=== PATIENT | male | born 1950 | race Caucasian/White ===

== ENCOUNTER → 2016-11-25 | Outpatient (REF) | payer MEDICARE, MEDICAID | LOC: M SMT 13:10 | PROVIDERS: ATTEND Nurse Practitioner Women's Health | DX: R31.0 Gross hematuria (principal) | CPT/HCPCS: 81001; 87086; 88108; G0463 ==

== ENCOUNTER → 2016-12-09 | Outpatient (CLI) | payer MEDICARE, MEDICAID ==
[~2016-12-09] MED LIST: ISOVUE-370 76% 100ML VIAL (Q9967) As Ordered ONE
--- NOTE | 2016-12-09 13:26 | REP ---
Clinical: Gross hematuria. Technique: Precontrast, contrast enhanced, and delayed images of the abdomen and pelvis using 100 ml Isovue 370 intravenous contrast material with coronal and sagittal re-formations. Findings: Bladder demonstrates a 3 cm enhancing rim calcified mass along the posterior right trigone concerning for transitional cell carcinoma. The remainder of the bladder is unremarkable and no obvious pelvic adenopathy is appreciated. Evaluation of the kidneys demonstrates 2 cm simple left upper pole parapelvic renal cyst and possible 1 mm nonobstructing lower pole calculus. The right kidney is normal. Kidneys demonstrate appropriate, symmetric enhancement and delayed images demonstrate appropriate contrast enhancement of the collecting system without hydroureteronephrosis. Liver, spleen, pancreas, and bilateral adrenal glands are normal. Cholelithiasis noted without CT evidence for acute cholecystitis. Evaluation of the enteric system demonstrates diffuse mural thickening to the colon from the cecum to the mid descending colon suggesting colitis and requiring further investigation. The remainder of the colon as well as a small bowel appears normal. Prostate gland is mildly enlarged. The sigmoid colon appears normal. No ascites. No significant intraperitoneal or retroperitoneal adenopathy identified. Musculoskeletal structures demonstrate age-related degenerative changes without focal osseous abnormality. No lung bases are clear. Impression: 1. A 3 cm enhancing rim calcified bladder mass at the right trigone concerning for transitional cell carcinoma. Urology consultation and cystoscopy is recommended. Kidneys demonstrate a 2 cm simple left renal cyst and 1 mm nonobstructing left renal calculus. 2. Mural thickening to the colon from the cecum to the mid descending colon concerning for acute inflammatory bowel disease versus acute infectious/inflammatory colitis and further investigation is recommended. Signed by Kirk Aleman MD 12/09/2016 01:17 P
== END ==
LOC: M RAD 12:30
PROVIDERS: ATTEND Nurse Practitioner Women's Health
DX: R31.0 Gross hematuria (principal); N28.89 Other specified disorders of kidney and ureter; N28.1 Cyst of kidney, acquired
CPT/HCPCS: 74178; Q9967

== ENCOUNTER → 2017-01-04 | Outpatient (REF) | payer MEDICARE, MEDICAID ==
[~2017-01-04] MED LIST changes: +ALPR2TAB3 PO; +B COTAB3 PO; +CO Q100C10 PO; +GLUC1CAP9 PO; +HYDR-3713 PO; -ISOVUE-370 76% 100ML VIAL (Q9967) As Ordered ONE; +MELA0.02 PO; +ODEF1TAB PO; +PROSCAP PO; +VITATAB21 PO; +VITATAB74 PO; +ZINC66TA PO; +ZYFLAMEND PO; +[UNRECOGNIZED DRUG - CODE] PO; +[UNRECOGNIZED DRUG - OTHER] PO
== END ==
LOC: M SMT 17:10
PROVIDERS: ATTEND Urology
DX: N40.1 Benign prostatic hyperplasia with lower urinary tract symptoms (principal)

== ENCOUNTER → 2017-01-07 | Outpatient (CLI) | payer MEDICARE, MEDICAID ==
--- NOTE | 2017-01-07 09:49 | REP ---
PA and lateral chest: Comparison is the chest CT dated of 05/14/2010. There are no comparison plain film study. There is a 7 mm faintly visible nodule like density inferiorly in the right lung, possibly a nipple artifact. Repeat study with markers performed with arms at sides and with arms over head is recommended to evaluate for nipple shadow artifact. Lung nicholas otherwise clear. Cardiac size is normal. The shant, mediastinum, and bony thorax are unremarkable. There are no acute infiltrates or effusions. Impression: Right lung nodule versus nipple shadow artifact. Repeat study with nipple markers as described, is recommended. Otherwise, negative PA chest. Signed by Yovany Griggs MD 01/07/2017 09:41 A
[2017-01-07 13:40] LABS: CALCIUM LEVEL 10.5 MG/DL (8.8-10.2); CREATININE FOR GFR 1.41 MG/DL (0.70-1.30); GLOMERULAR FILTRATION RATE 53.5 (>49); POTASSIUM SERUM 4.4 MEQ/L (3.5-5.1)
[2017-01-07 13:54] LABS: INR 0.94
[2017-01-07 14:00] LABS: MEAN CORPUSCULAR HEMOGLOBIN 31.5 pg (27.0-33.0); MEAN CORPUSCULAR HGB CONC 33.1 g/dl (32.0-36.5); MEAN CORPUSCULAR VOLUME 95.1 fl (80.0-96.0); RED CELL DISTRIBUTION WIDTH 12.5 % (11.5-14.5); WHITE BLOOD COUNT 11.4 K/mm3 (4.0-10.0)
== END ==
LOC: M SMT 07:57
PROVIDERS: ATTEND Urology
DX: R31.9 Hematuria, unspecified (principal); R91.8 Other nonspecific abnormal finding of lung field

== ENCOUNTER → 2017-01-20 | Day surgery (SDC) | payer MEDICARE, MEDICAID ==
[~2017-01-20] VITALS: Ht 167.6 cm; Wt 56.7 kg
[~2017-01-20] MED LIST changes: +CIPR500T3 PO; +CIPROFLOXACIN 500 MG TAB PO SCH; +LIDOCAINE 2% INJ 100 MG/5 ML SDV (FOR ANES.) As Ordered ONE; +LR 1,000 ML IV ONE; +LR 1,000 ML IV SCH; -MELA0.02 PO; +MELA3TAB49 PO; +MEPERIDINE INJ 25 MG/ML VIAL (J2175) IV PRN; +METOCLOPRAMIDE INJ 10MG/2ML VIAL (J2765) IV PRN; +MIDAZOLAM INJ 2 MG/2 ML VIAL (J2250) As Ordered ONE; +ONDANSETRON 4MG/2ML VIAL (J2405) As Ordered ONE; +ONDANSETRON 4MG/2ML VIAL (J2405) IV PRN; +PERCOCET 5MG/325MG TAB PO PRN; +PERCOCET PO; +PHENYLephrine HCL 500 MCG/5 ML (100MCG/ML) SYRINGE (J2370) As Ordered ONE; +PROPOFOL 200 MG/20 ML VIAL As Ordered ONE; +ROCURONIUM BROMIDE 50 MG/5 ML VIAL/SYRINGE As Ordered ONE; +SUGAMMADEX SODIUM 500 MG/5 ML VIAL (BRIDION) As Ordered ONE; +fentaNYL 100 MCG/2 ML INJECTION (J3010) As Ordered ONE
[2017-01-20] MEDS: fentaNYL 100 MCG/2 ML INJECTION (J3010) IV PRN ×3 (09:56→10:18)
[2017-01-20 12:45] VITALS: BP 129/74
--- NOTE | 2017-01-21 11:09 | RO ---
DATE OF PROCEDURE: 01/20/2017 PREPROCEDURE DIAGNOSIS: Bladder neoplasms POSTPROCEDURE DIAGNOSIS: Bladder neoplasms FINDINGS: Two bladder tumors, one on the right lateral wall and one on the left lateral wall, the right lateral wall was larger than the left and measuring 4 cm , the other one was 3 cm in diameter. PROCEDURE: Cystoscopy plus examination under anesthesia, transurethral resection of bladder tumor, bipolar TURBT. SURGEON: David Marquez MD POLICY ADVISER: None. ANESTHESIA: General. COMPLICATIONS: None. ESTIMATED BLOOD LOSS: N/A. HISTORY OF PRESENT ILLNESS: 66-year-old male patient who had a flexible cystoscopy in the clinic that found a bladder tumor. Both ureteral orifices were seen. For this reason, he was consented for a cystoscopy, plus examination under anesthesia, plus TURBT. DESCRIPTION OF PROCEDURE: In the patient under general anesthesia in supine, modified, low lithotomy position, after prepping and draping the area of concern , which included the entire genitalia and abdomen, I introduced a cystoscopy, #21 Libyan in diameter with a 30-degree lens under videoendoscopic guidance. The fossa navicularis, penile urethra, bulbar urethra, membranous urethra and prostatic urethra were totally normal. The bladder had two papillary tumors, largest 4 cm in diameter and the other one 3 cm in diameter on the lateral kelly of the bladder. Both ureteral orifices were seen excreting clear urine. The rest of the bladder was normal. We then extracted the cystoscope and introduced resectoscope. Under normal saline with bipolar resection, we resected first the right lateral wall tumor. We then collected the specimen with Ellik evacuator. We then resected the base of the bladder wall tumor on the right side and collected a specimen in a separate container also. We then fulgurated the base. We then proceeded to resect the left lateral wall tumor and collected a specimen with Ellik evacuator and fulgurated the base of the tumor also. Once hemostasis was totally complete, we took out the resectoscope and placed a #20-Libyan Reed catheter, three-way, and inflated the balloon to 20 mL. We then proceeded to perform a bimanual examination. The prostatic gland was about 40 to 60 mL, no lumps, no pain. The pedicles of the bladder were soft. There were no three-dimensional masses. We then proceeded to place a Reed to gravity. PLAN: The patient will go to recovery and then will be discharged home with the Reed to gravity. In about 5 days, he will be followed up at [facility] for a voiding trial. He will take antibiotics and pain medication. Specimens were sent for permanent pathology analysis. ANTHONY
== END | disposition home or self-care (01) ==
LOC: M SDC 05:48
PROVIDERS: ATTEND Urology
DX: C67.3 Malignant neoplasm of anterior wall of bladder (principal); B20 Human immunodeficiency virus [HIV] disease; R85.612 Low grade squamous intraepithelial lesion on cytologic smear of anus (LGSIL); K51.90 Ulcerative colitis, unspecified, without complications; M81.0 Age-related osteoporosis without current pathological fracture; E55.9 Vitamin D deficiency, unspecified; F41.1 Generalized anxiety disorder; E78.4 Other hyperlipidemia; T88.59XD Other complications of anesthesia, subsequent encounter; M12.9 Arthropathy, unspecified; F32.9 Major depressive disorder, single episode, unspecified; F43.10 Post-traumatic stress disorder, unspecified; Z91.040 Latex allergy status; Z79.899 Other long term (current) drug therapy
CPT/HCPCS: 36415; 52240; 86850; 86900; 86901; 88307; J0690; J2250; J2370; J2405; J3010

== ENCOUNTER → 2017-02-05 | Outpatient (REF) | payer MEDICARE, MEDICAID ==
[~2017-02-05] MED LIST changes: -CIPROFLOXACIN 500 MG TAB PO SCH; -LIDOCAINE 2% INJ 100 MG/5 ML SDV (FOR ANES.) As Ordered ONE; -LR 1,000 ML IV ONE; -LR 1,000 ML IV SCH; -MEPERIDINE INJ 25 MG/ML VIAL (J2175) IV PRN; -METOCLOPRAMIDE INJ 10MG/2ML VIAL (J2765) IV PRN; -MIDAZOLAM INJ 2 MG/2 ML VIAL (J2250) As Ordered ONE; -ONDANSETRON 4MG/2ML VIAL (J2405) As Ordered ONE; -ONDANSETRON 4MG/2ML VIAL (J2405) IV PRN; -PERCOCET 5MG/325MG TAB PO PRN; -PHENYLephrine HCL 500 MCG/5 ML (100MCG/ML) SYRINGE (J2370) As Ordered ONE; -PROPOFOL 200 MG/20 ML VIAL As Ordered ONE; -ROCURONIUM BROMIDE 50 MG/5 ML VIAL/SYRINGE As Ordered ONE; -SUGAMMADEX SODIUM 500 MG/5 ML VIAL (BRIDION) As Ordered ONE; -fentaNYL 100 MCG/2 ML INJECTION (J3010) As Ordered ONE
== END ==
LOC: M SMT 12:48
PROVIDERS: ATTEND Urology
DX: C67.9 Malignant neoplasm of bladder, unspecified (principal); Z79.899 Other long term (current) drug therapy
CPT/HCPCS: 81001; 87086; G0463

== ENCOUNTER → 2017-02-25 | Outpatient (CLI) | payer MEDICARE, MEDICAID ==
[2017-02-25 13:56] LABS: BASO % 0.5 % (0.0-1.0); EOS # 0.1 K/mm3 (0.0-0.50); EOS % 1.2 % (0.0-3.0); LARGE UNSTAINED CELL # 0.1 K/mm3 (0.0-0.4); LARGE UNSTAINED CELL % 1.8 % (0.0-4.0); LYMPH # 2.4 K/mm3 (1.5-4.5); LYMPH % 29.5 % (24.0-44.0); MEAN CORPUSCULAR HEMOGLOBIN 30.8 pg (27.0-33.0); MEAN CORPUSCULAR HGB CONC 33.1 g/dl (32.0-36.5); MEAN CORPUSCULAR VOLUME 93.2 fl (80.0-96.0); MONO # 0.4 K/mm3 (0.0-0.8); MONO % 5.1 % (0.0-5.0); NEUTROPHILS # 4.7 K/mm3 (1.8-7.7); NEUTROPHILS % 61.9 % (36.0-66.0); PLATELET COUNT, AUTOMATED 352 k/mm3 (150-450); RED CELL DISTRIBUTION WIDTH 13.2 % (11.5-14.5); WHITE BLOOD COUNT 7.6 K/mm3 (4.0-10.0)
[2017-02-25 14:05] LABS: ALBUMIN 4.4 GM/DL (3.2-5.2); ALBUMIN/GLOBULIN RATIO 1.26 (1.00-1.93); BILIRUBIN,TOTAL 0.4 MG/DL (0.2-1.0); CALCIUM LEVEL 10.5 MG/DL (8.8-10.2); CREATININE FOR GFR 1.33 MG/DL (0.70-1.30); GLOMERULAR FILTRATION RATE 57.1 (>49); POTASSIUM SERUM 4.3 MEQ/L (3.5-5.1); TOTAL PROTEIN 7.9 GM/DL (6.4-8.2)
[2017-02-27 00:07] LABS: %CD3+CD4+CD8+ 1.1 % (Not Estab.); %CD3+CD4+CD8- 35.8 % (Not Estab.); %CD3+CD4-CD8- 0.4 % (Not Estab.); ABS CD3+CD4+CD8+ 25 /uL (Not Estab.); ABS CD3+CD4+CD8- 823 /uL (Not Estab.); ABS CD3+CD4-CD8+ 529 /uL (Not Estab.); ABS CD3+CD4-CD8- 9 /uL (Not Estab.); CD4/CD8 NYSDOH RATIO 1.56 (Not Estab.); Eosinophils 1 % (.); HCT 43.3 % (37.5-51.0); HGB 14.7 g/dL (12.6-17.7); Monocytes 8 % (.); Neutrophils 59 % (.); WBC 7.4 x10E3/uL (3.4-10.8)
== END ==
LOC: M SMT 08:12
PROVIDERS: ATTEND Internal Medicine Infectious Disease
DX: B20 Human immunodeficiency virus [HIV] disease (principal); C67.9 Malignant neoplasm of bladder, unspecified; Z79.899 Other long term (current) drug therapy

== ENCOUNTER → 2017-03-31 | Outpatient (REF) | payer MEDICARE, MEDICAID | LOC: M SMT 13:20 | PROVIDERS: ATTEND Nurse Practitioner Women's Health | DX: C67.9 Malignant neoplasm of bladder, unspecified (principal); Z79.899 Other long term (current) drug therapy ==

== ENCOUNTER → 2017-04-13 | Outpatient (REF) | payer MEDICARE, MEDICAID ==
[2017-04-13 12:29] LABS: ANION GAP 6 MEQ/L (8-16); BLOOD UREA NITROGEN 17 MG/DL (7-18); CALCIUM LEVEL 10.9 MG/DL (8.8-10.2); CARBON DIOXIDE LEVEL 28 MEQ/L (21-32); CHLORIDE LEVEL 106 MEQ/L (98-107); CREATININE FOR GFR 1.12 MG/DL (0.70-1.30); GLOMERULAR FILTRATION RATE > 60.0 (>49); GLUCOSE, FASTING 104 MG/DL (80-110); SODIUM LEVEL 140 MEQ/L (136-145)
[2017-05-11 08:07] LABS: Eosinophils 1 % (.); HCT 43.1 % (37.5-51.0); HGB 14.6 g/dL (12.6-17.7); Monocytes 9 % (.); Neutrophils 59 % (.); WBC 7.1 x10E3/uL (3.4-10.8)
== END ==
LOC: M SFHCPLAZ 09:16
PROVIDERS: ATTEND Internal Medicine Infectious Disease
DX: B20 Human immunodeficiency virus [HIV] disease (principal); C67.9 Malignant neoplasm of bladder, unspecified; M81.0 Age-related osteoporosis without current pathological fracture; E55.9 Vitamin D deficiency, unspecified; K51.90 Ulcerative colitis, unspecified, without complications; F41.1 Generalized anxiety disorder; N40.1 Benign prostatic hyperplasia with lower urinary tract symptoms; Z23 Encounter for immunization; Z79.1 Long term (current) use of non-steroidal anti-inflammatories (NSAID); Z79.899 Other long term (current) drug therapy
CPT/HCPCS: 36415; 80048; 81001; 86360; 87086; 87536; 90662; G0008; G0463

== ENCOUNTER → 2017-04-23 | Outpatient (CLI) | payer MEDICARE, MEDICAID ==
[~2017-04-23] MED LIST changes: +GASTROGRAFIN SOLUTION 30ML (Q9963) As Ordered ONE; +ISOVUE-370 76% 100ML VIAL (Q9967) As Ordered ONE
--- NOTE | 2017-04-24 11:01 | REP ---
CT CHEST WITH CONTRAST: HISTORY: Hypercalcemia. CONTRAST: Isovue 370, 100 mL. COMPARISON: 07/04/2010. Scarring is present in the lung apices. Scattered bullae are present in the lungs. A minimal increase in interstitial markings is present. There is no pleural effusion. There is no mediastinal mass. The heart is normal in size. Minimal degenerative change is present in the thoracic spine. IMPRESSION: Findings consistent with COPD Signed by Lio Martinez MD 04/24/2017 11:02 A
--- NOTE | 2017-04-24 18:24 | REP ---
A CT of the abdomen and pelvis without and with IV contrast, multiphase scanning. Bowel contrast is utilized on all phases of the study. Comparison is 12/09/2016. The bladder mass noted along the posterior wall of the bladder to the right of midline on the previous study is no longer present. The small polyp along the left lateral bladder wall previously is no longer present. There is no hydronephrosis. There is a left renal upper pole 1.9 cm cyst. This is unchanged. No renal calculi are identified. No perinephric stranding. No renal masses are identified. The visualized lung nicholas are unremarkable. The hepatic parenchyma is homogeneous and unremarkable. There are multiple small gallbladder calculi in the, unchanged. There is no biliary duct dilatation. The pancreas and spleen are unremarkable and unchanged. The adrenals are unremarkable. Abdominal aorta, bowel and mesentery are unremarkable. There is no retroperitoneal or mesenteric adenopathy. Pelvis: The previously identified bladder masses are no longer present. There is no ascites or adenopathy. The pelvic bowel loops are unremarkable. There are no lytic, blastic or destructive skeletal changes. There is degenerative disc disease at L5 S1. Impression: The previously identified bladder masses are no longer present. Cholelithiasis. Left renal cyst. There is no retroperitoneal or mesenteric adenopathy. No ascites. No lytic, blastic or destructive skeletal changes. Signed by Yovany Griggs MD 04/24/2017 06:15 P
== END ==
LOC: M RAD 15:14
PROVIDERS: ATTEND Internal Medicine Infectious Disease
DX: C67.3 Malignant neoplasm of anterior wall of bladder (principal); E83.52 Hypercalcemia; J44.9 Chronic obstructive pulmonary disease, unspecified; K80.20 Calculus of gallbladder without cholecystitis without obstruction; N28.1 Cyst of kidney, acquired
CPT/HCPCS: 71260; 74178; Q9963; Q9967

== ENCOUNTER 2017-07-30 08:01 | Day surgery (SDC) | payer MEDICARE, MEDICAID ==
[~2017-07-30 08:01] MED LIST changes: -ALPR2TAB3 PO; -B COTAB3 PO; -CIPR500T3 PO; -CO Q100C10 PO; -GASTROGRAFIN SOLUTION 30ML (Q9963) As Ordered ONE; -GLUC1CAP9 PO; -HYDR-3713 PO; -ISOVUE-370 76% 100ML VIAL (Q9967) As Ordered ONE; -MELA3TAB49 PO; -ODEF1TAB PO; -PERCOCET PO; +PROPOFOL 200 MG/20 ML VIAL As Ordered; -PROSCAP PO; -VITATAB21 PO; -VITATAB74 PO; -ZINC66TA PO; -ZYFLAMEND PO; -[UNRECOGNIZED DRUG - CODE] PO; -[UNRECOGNIZED DRUG - OTHER] PO
[2017-07-30] MEDS ORDERED: NS 1,000 ML IV (09:30)
== END 2017-07-30 10:35 | disposition home or self-care (01) ==
LOC: M OPP 08:01
DX: K51.00 Ulcerative (chronic) pancolitis without complications (principal); K51.50 Left sided colitis without complications; K51.40 Inflammatory polyps of colon without complications; K62.89 Other specified diseases of anus and rectum; E78.5 Hyperlipidemia, unspecified; M19.90 Unspecified osteoarthritis, unspecified site; F41.9 Anxiety disorder, unspecified; F32.9 Major depressive disorder, single episode, unspecified; R51 Headache; F43.10 Post-traumatic stress disorder, unspecified; C67.9 Malignant neoplasm of bladder, unspecified; B20 Human immunodeficiency virus [HIV] disease; Z79.899 Other long term (current) drug therapy; Z88.8 Allergy status to other drugs, medicaments and biological substances; Z91.040 Latex allergy status; Z91.041 Radiographic dye allergy status
CPT/HCPCS: 45380

== ENCOUNTER → 2017-08-24 | Outpatient (REF) | payer MEDICARE, MEDICAID ==
[2017-08-24 14:24] LABS: ALBUMIN 4.7 GM/DL (3.2-5.2); ALBUMIN/GLOBULIN RATIO 1.31 (1.00-1.93); ALKALINE PHOSPHATASE 97 U/L (45-117); ALT/SGPT 43 U/L (12-78); ANION GAP 8 MEQ/L (8-16); AST/SGOT 33 U/L (7-37); BILIRUBIN,TOTAL 0.4 MG/DL (0.2-1.0); BLOOD UREA NITROGEN 24 MG/DL (7-18); CALCIUM LEVEL 10.7 MG/DL (8.8-10.2); CARBON DIOXIDE LEVEL 29 MEQ/L (21-32); CHLORIDE LEVEL 103 MEQ/L (98-107); CHOLESTEROL LEVEL 204 MG/DL (<200); CHOLESTEROL RISK RATIO 3.923 (<5); CREATININE FOR GFR 1.34 MG/DL (0.70-1.30); GLOMERULAR FILTRATION RATE 56.6 (>49); GLUCOSE, FASTING 81 MG/DL (70-100); HDL CHOLESTEROL 52 MG/DL (>40); LDL CHOLESTEROL 111.6 MG/DL (<100); NON-HDL-C 152 MG/DL; POTASSIUM SERUM 3.9 MEQ/L (3.5-5.1); PSA SCREENING 0.51 NG/ML (< 4.0); SODIUM LEVEL 140 MEQ/L (136-145); TOTAL PROTEIN 8.3 GM/DL (6.4-8.2); TRIGLYCERIDES LEVEL 202 MG/DL (<150)
[2017-08-24 20:10] LABS: APPEARANCE, URINE HAZY (CLEAR); BACTERIA, URINE AUTO NEGATIVE (NEGATIVE); BILIRUBIN, URINE AUTO NEGATIVE (NEGATIVE); BLOOD, URINE BLOOD NEGATIVE (NEGATIVE); COLOR, URINE YELLOW (YELLOW); GLUCOSE, URINE (UA) AUTO NEGATIVE (NEGATIVE); KETONE, URINE AUTO NEGATIVE (NEGATIVE); LEUKOCYTE ESTERASE, URINE AUTO NEGATIVE (NEGATIVE); NITRITE, URINE AUTO NEGATIVE (NEGATIVE); PROTEIN, URINE AUTO NEGATIVE (NEGATIVE); RBC, URINE AUTO 0 /HPF (0-3); SPECIFIC GRAVITY URINE AUTO 1.013 (1.002-1.035); SQUAMOUS EPITHELIAL CELL UR AU 0 /HPF (0-6); UROBILINOGEN, URINE AUTO 0.2 mg/dL (0.0-2.0); WBC, URINE AUTO 0 /HPF (0-3)
[2017-08-27 00:06] LABS: QUANTIFERON GOLD TB Negative (Negative); TB Test (QFT) Antigen 0.11 IU/mL (.); TB Test (QFT) Antigen Minus Ni 0.01 IU/mL (.); TB Test (QFT) Mitogen 6.59 IU/mL (.)
[2017-08-27 14:13] LABS: % CD8 Pos Lymph 23.4 % (12.0-35.5); %CD4 Pos Lymphs 50.6 % (30.8-58.5); ABS Eosinophils 0.1 x10E3/uL (0.0-0.4); ABS Lymphs 2.9 x10E3/uL (0.7-3.1); ABS Monocytes 0.7 x10E3/uL (0.1-0.9); ABS Neutophils 4.6 x10E3/uL (1.4-7.0); Abs CD4 Helper 1467 /uL (359-1519); Abs CD8 Suppres 679 /uL (109-897); CD4/CD8 Ratio 2.16 (0.92-3.72); Eosinophils 1 % (Not Estab.); HCT 43.5 % (37.5-51.0); HGB 15.1 g/dL (13.0-17.7); HIV-1 RNA PCR QUANT 2 LC550285 390 copies/mL (.); HIV-1 RNA PCR QUANT 3 LC550285 2.591 (.); Immature Grans 0 % (Not Estab.); Lymphocytes 35 % (Not Estab.); MCH 32.8 pg (26.6-33.0); MCHC 34.7 g/dL (31.5-35.7); MCV 94 fL (79-97); Monocytes 9 % (Not Estab.); Neutrophils 54 % (Not Estab.); Platelets 357 x10E3/uL (150-379); RBC 4.61 x10E6/uL (4.14-5.80); RDW 13.2 % (12.3-15.4); WBC 8.4 x10E3/uL (3.4-10.8)
== END ==
LOC: M SFHCPLAZ 11:03
DX: C67.3 Malignant neoplasm of anterior wall of bladder (principal); B20 Human immunodeficiency virus [HIV] disease; Z13.220 Encounter for screening for lipoid disorders; Z79.899 Other long term (current) drug therapy; Z23 Encounter for immunization
CPT/HCPCS: 80053; G0008

== ENCOUNTER → 2017-08-30 | Outpatient (REF) | payer MEDICARE, MEDICAID ==
[2017-08-30 13:59] LABS: APPEARANCE, URINE CLEAR (CLEAR); BACTERIA, URINE AUTO NEGATIVE (NEGATIVE); BILIRUBIN, URINE AUTO NEGATIVE (NEGATIVE); BLOOD, URINE BLOOD NEGATIVE (NEGATIVE); COLOR, URINE YELLOW (YELLOW); GLUCOSE, URINE (UA) AUTO NEGATIVE (NEGATIVE); KETONE, URINE AUTO NEGATIVE (NEGATIVE); LEUKOCYTE ESTERASE, URINE AUTO NEGATIVE (NEGATIVE); NITRITE, URINE AUTO NEGATIVE (NEGATIVE); PROTEIN, URINE AUTO NEGATIVE (NEGATIVE); RBC, URINE AUTO 0 /HPF (0-3); SPECIFIC GRAVITY URINE AUTO 1.008 (1.002-1.035); SQUAMOUS EPITHELIAL CELL UR AU 0 /HPF (0-6); UROBILINOGEN, URINE AUTO 0.2 mg/dL (0.0-2.0); WBC, URINE AUTO 1 /HPF (0-3)
== END ==
LOC: M LAB REF 13:03
DX: Z85.51 Personal history of malignant neoplasm of bladder (principal); N50.819 Testicular pain, unspecified; B20 Human immunodeficiency virus [HIV] disease; Z79.899 Other long term (current) drug therapy
CPT/HCPCS: 81001

== ENCOUNTER → 2017-09-06 | Outpatient (CLI) | payer MEDICARE, MEDICAID | LOC: M SMT 09:07 | DX: N50.819 Testicular pain, unspecified (principal) | CPT/HCPCS: 76870 ==

== ENCOUNTER → 2017-12-06 | Outpatient (REF) | payer MEDICARE, MEDICAID | LOC: M SMT 17:06 | DX: Z08 Encounter for follow-up examination after completed treatment for malignant neoplasm (principal); Z85.51 Personal history of malignant neoplasm of bladder | CPT/HCPCS: 88108 ==

== ENCOUNTER → 2017-12-21 | Outpatient (REF) | payer MEDICARE, MEDICAID ==
[2017-12-21 12:48] LABS: FOLATE > 24.0 NG/ML; TOTAL 25(OH) VITAMIN D 31.2 NG/ML (30.0-100.0)
[2017-12-21 12:53] LABS: ALBUMIN 4.3 GM/DL (3.2-5.2); ALBUMIN/GLOBULIN RATIO 1.19 (1.00-1.93); ALKALINE PHOSPHATASE 97 U/L (45-117); ALT/SGPT 33 U/L (12-78); ANION GAP 8 MEQ/L (8-16); AST/SGOT 26 U/L (7-37); BILIRUBIN,TOTAL 0.2 MG/DL (0.2-1.0); BLOOD UREA NITROGEN 16 MG/DL (7-18); CALCIUM LEVEL 10.2 MG/DL (8.8-10.2); CARBON DIOXIDE LEVEL 25 MEQ/L (21-32); CHLORIDE LEVEL 108 MEQ/L (98-107); CREATININE FOR GFR 1.18 MG/DL (0.70-1.30); GLOMERULAR FILTRATION RATE > 60.0 (>49); GLUCOSE, FASTING 108 MG/DL (70-100); POTASSIUM SERUM 4.3 MEQ/L (3.5-5.1); SODIUM LEVEL 141 MEQ/L (136-145); THYROID STIMULATING HORMONE 0.628 uIU/ML (0.358-3.740); TOTAL PROTEIN 7.9 GM/DL (6.4-8.2)
[2017-12-21 13:49] LABS: VITAMIN B12 LEVEL 739 PG/ML
[2017-12-22 17:41] LABS: % CD8 Pos Lymph 24.6 % (12.0-35.5); %CD4 Pos Lymphs 53.7 % (30.8-58.5); ABS Eosinophils 0.1 x10E3/uL (0.0-0.4); ABS Lymphs 2.2 x10E3/uL (0.7-3.1); ABS Monocytes 0.8 x10E3/uL (0.1-0.9); ABS Neutophils 7.4 x10E3/uL (1.4-7.0); Abs CD4 Helper 1181 /uL (359-1519); Abs CD8 Suppres 541 /uL (109-897); CD4/CD8 Ratio 2.18 (0.92-3.72); Eosinophils 1 % (Not Estab.); HCT 42.1 % (37.5-51.0); HGB 14.1 g/dL (13.0-17.7); Immature Grans 0 % (Not Estab.); Lymphocytes 21 % (Not Estab.); MCH 31.5 pg (26.6-33.0); MCHC 33.5 g/dL (31.5-35.7); MCV 94 fL (79-97); Monocytes 8 % (Not Estab.); Neutrophils 70 % (Not Estab.); Platelets 428 x10E3/uL (150-379); RBC 4.48 x10E6/uL (4.14-5.80); RDW 13.5 % (12.3-15.4); WBC 10.4 x10E3/uL (3.4-10.8)
[2017-12-23 14:16] LABS: HIV-1 RNA PCR QUANT 2 LC550285 <20 copies/mL (.)
== END ==
LOC: M SFHCPLAZ 08:29
DX: B20 Human immunodeficiency virus [HIV] disease (principal); E55.9 Vitamin D deficiency, unspecified; K51.90 Ulcerative colitis, unspecified, without complications; C67.9 Malignant neoplasm of bladder, unspecified; F41.1 Generalized anxiety disorder; M81.0 Age-related osteoporosis without current pathological fracture
CPT/HCPCS: 82746

== ENCOUNTER → 2018-03-14 | Outpatient (REF) | payer MEDICARE, MEDICAID | LOC: M SMT 13:15 | DX: B20 Human immunodeficiency virus [HIV] disease (principal) | CPT/HCPCS: 88108 ==

== ENCOUNTER → 2018-07-28 | Outpatient (REF) | payer MEDICARE, MEDICAID ==
[~2018-07-28] MED LIST changes: +ALPR2TAB3 PO; +ARGI500P PO; +AUGM875T28 PO; +B COTAB3 PO; +CIPR500T3 PO; +CO Q100C10 PO; +GLUC1500 PO; +GLUC1CAP9 PO; +HYDR-3713 PO; +MELA3TAB49 PO; +MULT1TAB10 PO; +ODEF1TAB PO; +PERCOCET PO; -PROPOFOL 200 MG/20 ML VIAL As Ordered; +PROSCAP PO; +SMZ-TMP; +VITATAB21 PO; +VITATAB74 PO; +ZINC66TA PO; +ZYFLAMEND PO; +[UNRECOGNIZED DRUG - CODE] PO; +[UNRECOGNIZED DRUG - CODE] PO; +[UNRECOGNIZED DRUG - OTHER] PO; +[UNRECOGNIZED DRUG - OTHER] PO
[2018-07-28 14:10] LABS: APPEARANCE, URINE HAZY (CLEAR); BACTERIA, URINE AUTO NEGATIVE (NEGATIVE); BILIRUBIN, URINE AUTO NEGATIVE (NEGATIVE); BLOOD, URINE BLOOD NEGATIVE (NEGATIVE); COLOR, URINE YELLOW (YELLOW); GLUCOSE, URINE (UA) AUTO NEGATIVE (NEGATIVE); KETONE, URINE AUTO NEGATIVE (NEGATIVE); LEUKOCYTE ESTERASE, URINE AUTO NEGATIVE (NEGATIVE); NITRITE, URINE AUTO NEGATIVE (NEGATIVE); PROTEIN, URINE AUTO NEGATIVE (NEGATIVE); RBC, URINE AUTO 4 /HPF (0-3); SPECIFIC GRAVITY URINE AUTO 1.011 (1.002-1.035); SQUAMOUS EPITHELIAL CELL UR AU 0 /HPF (0-6); UROBILINOGEN, URINE AUTO 0.2 mg/dL (0.0-2.0); WBC, URINE AUTO 1 /HPF (0-3)
[2018-07-28 14:34] LABS: ALBUMIN 4.2 GM/DL (3.2-5.2); ALT/SGPT 45 U/L (12-78); BILIRUBIN,TOTAL 0.4 MG/DL (0.2-1.0); BLOOD UREA NITROGEN 22 MG/DL (7-18); CALCIUM LEVEL 10.1 MG/DL (8.8-10.2); CARBON DIOXIDE LEVEL 28 MEQ/L (21-32); CHLORIDE LEVEL 106 MEQ/L (98-107); CREATININE FOR GFR 1.24 MG/DL (0.70-1.30); GLOMERULAR FILTRATION RATE > 60.0 (>49); GLUCOSE, FASTING 96 MG/DL (70-100); POTASSIUM SERUM 4.2 MEQ/L (3.5-5.1); SODIUM LEVEL 139 MEQ/L (136-145); TOTAL PROTEIN 8.2 GM/DL (6.4-8.2)
[2018-07-28 14:42] LABS: TOTAL 25(OH) VITAMIN D 34.1 NG/ML (30.0-100.0)
[2018-08-02 00:07] LABS: % CD8 Pos Lymph 24.4 % (12.0-35.5); %CD4 Pos Lymphs 48.5 % (30.8-58.5); ABS Eosinophils 0.1 x10E3/uL (0.0-0.4); ABS Monocytes 0.4 x10E3/uL (0.1-0.9); ABS Neutophils 4.8 x10E3/uL (1.4-7.0); Abs CD4 Helper 970 /uL (359-1519); Abs CD8 Suppres 488 /uL (109-897); CD4/CD8 Ratio 1.99 (0.92-3.72); Eosinophils 1 % (Not Estab.); HCT 41.4 % (37.5-51.0); HGB 14.1 g/dL (13.0-17.7); HIV-1 RNA PCR QUANT 2 LC550285 <20 copies/mL (.); Immature Grans 0 % (Not Estab.); Lymphocytes 27 % (Not Estab.); MCHC 34.1 g/dL (31.5-35.7); MCV 94 fL (79-97); Monocytes 5 % (Not Estab.); Neutrophils 67 % (Not Estab.); Platelets 398 x10E3/uL (150-379); RBC 4.41 x10E6/uL (4.14-5.80); RDW 12.8 % (12.3-15.4); WBC 7.3 x10E3/uL (3.4-10.8)
== END ==
LOC: M SFHCPLAZ 11:17
PROVIDERS: ATTEND Internal Medicine Infectious Disease
DX: B20 Human immunodeficiency virus [HIV] disease (principal); E55.9 Vitamin D deficiency, unspecified
CPT/HCPCS: 36415; 80053; 81001; 82306; 86360; 86480; 87536; G0463

== ENCOUNTER 2018-08-11 23:29 | Emergency (ER) | payer MEDICARE, MEDICAID ==
[~2018-08-11] VITALS: Ht 167.6 cm; Wt 57.3 kg
[2018-08-11 23:29] VITALS: BP 135/82
[~2018-08-11 23:29] MED LIST changes: -AUGM875T28 PO; -SMZ-TMP
[2018-08-11] MEDS ORDERED: SMZ-TMP (23:39)
[2018-08-12] MEDS ORDERED: PIPERACILLIN/TAZOBACTAM SOD 3.375 GM in D5W MINI-BAG PLUS 50 ML IV ONE ×2
[2018-08-12] MEDS ORDERED: NS 1,000 ML IV ONE
[2018-08-12 00:21] LABS: BASO # 0.1 10^3/uL (0.0-0.2); BASO % 0.6 % (0.0-1.0); EOS # 0.1 10^3/uL (0.0-0.50); EOS % 0.6 % (0.0-3.0); HEMATOCRIT 41.5 % (42.0-52.0); HEMOGLOBIN 14.4 g/dl (13.5-17.5); LYMPH # 2.1 10^3/uL (1.5-4.5); LYMPH % 20.5 % (24.0-44.0); MEAN CORPUSCULAR HEMOGLOBIN 31.9 pg (27.0-33.0); MEAN CORPUSCULAR HGB CONC 34.7 g/dl (32.0-36.5); MEAN CORPUSCULAR VOLUME 91.8 fl (80.0-96.0); MONO # 0.7 10^3/uL (0.0-0.8); MONO % 6.5 % (0.0-5.0); NEUTROPHILS # 7.4 10^3/uL (1.8-7.7); NEUTROPHILS % 71.3 % (36.0-66.0); PLATELET COUNT, AUTOMATED 360 10^3/uL (150-450); RED BLOOD COUNT 4.52 10^6/uL (4.30-6.10); WHITE BLOOD COUNT 10.3 10^3/uL (4.0-10.0)
[2018-08-12 00:42] LABS: BLOOD UREA NITROGEN 29 MG/DL (7-18); C REACTIVE PROTEIN QUANTITATIV < 0.30 MG/DL (0.00-0.30); CALCIUM LEVEL 10.4 MG/DL (8.8-10.2); CARBON DIOXIDE LEVEL 22 MEQ/L (21-32); CHLORIDE LEVEL 104 MEQ/L (98-107); CREATININE FOR GFR 1.53 MG/DL (0.70-1.30); GLOMERULAR FILTRATION RATE 48.4 (>49); GLUCOSE, FASTING 170 MG/DL (70-100); POTASSIUM SERUM 3.5 MEQ/L (3.5-5.1); SODIUM LEVEL 139 MEQ/L (136-145)
[2018-08-12 01:49] LABS: ERYTHROCYTE SEDIMENTATION RATE 4 mm/hr (0-20)
[2018-08-12] MEDS ORDERED: AUGM875T28 PO (21:39)
== END 2018-08-12 01:43 | disposition home or self-care (01) ==
LOC: M ED 23:29
DX: B20 Human immunodeficiency virus [HIV] disease (principal); L25.9 Unspecified contact dermatitis, unspecified cause; R21 Rash and other nonspecific skin eruption; Z85.51 Personal history of malignant neoplasm of bladder; K51.90 Ulcerative colitis, unspecified, without complications; F41.9 Anxiety disorder, unspecified; Z79.899 Other long term (current) drug therapy; Z88.8 Allergy status to other drugs, medicaments and biological substances; Z91.041 Radiographic dye allergy status; Z91.040 Latex allergy status
CPT/HCPCS: 36415; 80048; 83605; 85025; 85652; 86140; 87040; 96365; 99284; J2543

== ENCOUNTER 2018-08-12 19:52 | Emergency (ER) | payer MEDICARE, MEDICAID ==
[~2018-08-12] VITALS: Ht 167.6 cm; Wt 56.8 kg
[~2018-08-12 19:52] MED LIST changes: +SMZ-TMP
[2018-08-12] MEDS ORDERED: AUGM875T28 PO (21:39)
[2018-08-12] MEDS ORDERED: PIPERACILLIN/TAZOBACTAM SOD 3.375 GM in D5W MINI-BAG PLUS 50 ML IV ONE (21:45)
[2018-08-12 22:38] VITALS: BP 110/69
== END 2018-08-12 22:39 | disposition home or self-care (01) ==
LOC: M ED 19:52
DX: L03.114 Cellulitis of left upper limb (principal); B20 Human immunodeficiency virus [HIV] disease; Z79.899 Other long term (current) drug therapy; Z88.8 Allergy status to other drugs, medicaments and biological substances; Z91.040 Latex allergy status; Z91.041 Radiographic dye allergy status
CPT/HCPCS: 96374; 99283; J2543

== ENCOUNTER → 2018-09-20 | Outpatient (REF) | payer MEDICARE, MEDICAID ==
[~2018-09-20] MED LIST changes: +AUGM875T28 PO
== END ==
LOC: M SFHCPLAZ 16:57
PROVIDERS: ATTEND Internal Medicine Infectious Disease
DX: L30.9 Dermatitis, unspecified (principal)

== ENCOUNTER → 2018-11-29 | Outpatient (REF) | payer MEDICARE, MEDICAID ==
[2018-11-29 12:59] LABS: ALBUMIN 4.5 GM/DL (3.2-5.2); ALT/SGPT 34 U/L (12-78); BILIRUBIN,TOTAL 0.4 MG/DL (0.2-1.0); BLOOD UREA NITROGEN 18 MG/DL (7-18); CALCIUM LEVEL 10.5 MG/DL (8.8-10.2); CARBON DIOXIDE LEVEL 28 MEQ/L (21-32); CHLORIDE LEVEL 105 MEQ/L (98-107); CHOLESTEROL LEVEL 214 MG/DL (<200); CHOLESTEROL RISK RATIO 4.553 (<5); CREATININE FOR GFR 1.16 MG/DL (0.70-1.30); GLOMERULAR FILTRATION RATE > 60.0 (>49); GLUCOSE, FASTING 88 MG/DL (70-100); HDL CHOLESTEROL 47 MG/DL (>40); LDL CHOLESTEROL 131 MG/DL (<100); NON-HDL-C 167 MG/DL; POTASSIUM SERUM 4.1 MEQ/L (3.5-5.1); SODIUM LEVEL 140 MEQ/L (136-145); TOTAL PROTEIN 7.8 GM/DL (6.4-8.2); TRIGLYCERIDES LEVEL 179 MG/DL (<150)
[2018-12-01 00:06] LABS: % CD8 Pos Lymph 24.2 % (12.0-35.5); %CD4 Pos Lymphs 53.9 % (30.8-58.5); ABS Basophils 0.1 x10E3/uL (0.0-0.2); ABS Eosinophils 0.1 x10E3/uL (0.0-0.4); ABS Lymphs 2.3 x10E3/uL (0.7-3.1); ABS Monocytes 0.5 x10E3/uL (0.1-0.9); ABS Neutophils 4.3 x10E3/uL (1.4-7.0); Abs CD4 Helper 1240 /uL (359-1519); Abs CD8 Suppres 557 /uL (109-897); CD4/CD8 Ratio 2.23 (0.92-3.72); Eosinophils 1 % (Not Estab.); HCT 42.1 % (37.5-51.0); HGB 14.2 g/dL (13.0-17.7); Immature Grans 0 % (Not Estab.); Lymphocytes 32 % (Not Estab.); MCH 31.5 pg (26.6-33.0); MCHC 33.7 g/dL (31.5-35.7); MCV 93 fL (79-97); Monocytes 7 % (Not Estab.); Neutrophils 59 % (Not Estab.); Platelets 364 x10E3/uL (150-379); RBC 4.51 x10E6/uL (4.14-5.80); RDW 13.4 % (12.3-15.4); WBC 7.2 x10E3/uL (3.4-10.8)
[2018-12-02 00:07] LABS: HIV-1 RNA PCR QUANT 2 LC550285 <20 copies/mL (.)
== END ==
LOC: M SFHCPLAZ 10:04
PROVIDERS: ATTEND Internal Medicine Infectious Disease
DX: B20 Human immunodeficiency virus [HIV] disease (principal); C67.3 Malignant neoplasm of anterior wall of bladder

== ENCOUNTER 2018-12-30 07:13 | Day surgery (SDC) | payer MEDICAID, MEDICARE ==
[~2018-12-30] VITALS: Ht 167.6 cm; Wt 56.7 kg
[~2018-12-30 07:13] MED LIST changes: +NS 1,000 ML IV ONE
[2018-12-30] MEDS ORDERED: PROPOFOL 200 MG/20 ML VIAL As Ordered ONE (07:16)
[2018-12-30] MEDS ORDERED: LIDOCAINE 2% INJ 100 MG/5 ML SDV (FOR ANES.) As Ordered ONE (07:16)
--- NOTE | 2018-12-30 09:29 | ROOR ---
Patient Name: Gagandeep Campbell Procedure Date: 12/30/2018 8:47 AM Date of : 1950 Age: 68 Room: [facility] Gender: Male Note Status: Finalized Procedure: Colonoscopy Indications: High risk colon cancer surveillance: Ulcerative pancolitis of 8 (or more) years duration, High risk colon cancer surveillance: Crohn's colitis of 8 (or more) years duration Providers: Clifford SOTO MD Referring MD: Carla EVANS MD. Requesting Provider: Medicines: Monitored Anesthesia Care Complications: No immediate complications. Procedure: Pre-Anesthesia Assessment: - The heart rate, respiratory rate, oxygen saturations, blood pressure, adequacy of pulmonary ventilation, and response to care were monitored throughout the procedure. The Colonoscope was introduced through the anus and advanced to 10 cm into the ileum. The colonoscopy was performed without difficulty. The patient tolerated the procedure well. The quality of the bowel preparation was good. Findings: The perianal and digital rectal examinations were normal. Inflammation characterized by erosions, erythema and aphthous ulcerations was found in a continuous and circumferential pattern from the hepatic flexure to the cecum and as patches surrounded by normal mucosa in the rectum, in the sigmoid colon, in the descending colon and in the transverse colon. This was mild in severity, and when compared to previous examinations, the findings are unchanged. The terminal ileum appeared normal. Impression: - Crohns disease (vs less likely UC). - Inflammation was found in the entire colon. (confluent/segmental in the right colon, scattered inflammatory patches in the left colon). This was mild to moderate in severity, unchanged compared to previous examinations. - The 15 cm portion of the ileum was normal. - No specimens collected. Recommendation: - Repeat colonoscopy in 1 year for surveillance. - Telephone endoscopist for pathology results in 2 weeks. - Based on todays findings, I would recommend starting more aggressive therapy for your crohns disease. Consider advancing management to a biologic therapy. Follow up with me in about 1 month to further discuss. - Return to my office in 1 month. Clifford Soto MD Clifford SOTO MD 12/30/2018 9:28:57 AM Electronically signed by Clifford SOTO MD Number of Addenda: 0 Note Initiated On: 12/30/2018 8:47 AM Estimated Blood Loss: Estimated blood loss: none. Estimated blood loss: none.
[2018-12-30 09:48] VITALS: BP 114/69
== END 2018-12-30 10:23 | disposition home or self-care (01) ==
LOC: M OPP 07:13
PROVIDERS: ATTEND Internal Medicine Gastroenterology
DX: K51.00 Ulcerative (chronic) pancolitis without complications (principal); K51.50 Left sided colitis without complications; D12.5 Benign neoplasm of sigmoid colon

== ENCOUNTER → 2019-01-09 | Outpatient (REF) | payer MEDICARE, MEDICAID ==
[~2019-01-09] MED LIST changes: -NS 1,000 ML IV ONE
== END ==
LOC: M SMT 12:51
PROVIDERS: ATTEND Urology
DX: C67.9 Malignant neoplasm of bladder, unspecified (principal)

== ENCOUNTER → 2019-02-06 | Outpatient (REF) | payer MEDICARE, MEDICAID ==
[~2019-02-06] MED LIST changes: +ACYC1CAP20 PO; +C-101TAB PO; +CBD OIL; +CLOT1CRE2 TOP; +L-LY500T9 PO; +NO ITAB PO; +SM M250T PO; +SM S160C PO; +TRIA1OI TOP; +ZOVI5OIN8 TOP; +ZYFLAMEND
[2019-02-06 16:50] LABS: BASO # 0.1 10^3/uL (0.0-0.2); BASO % 0.7 % (0.0-1.0); EOS # 0.1 10^3/uL (0.0-0.50); EOS % 0.7 % (0.0-3.0); HEMOGLOBIN 14.3 g/dl (13.5-17.5); LYMPH # 2.2 10^3/uL (1.5-4.5); LYMPH % 28.3 % (24.0-44.0); MEAN CORPUSCULAR HEMOGLOBIN 31.9 pg (27.0-33.0); MEAN CORPUSCULAR HGB CONC 33.3 g/dl (32.0-36.5); MONO # 0.5 10^3/uL (0.0-0.8); MONO % 6.3 % (0.0-5.0); NEUTROPHILS # 4.9 10^3/uL (1.8-7.7); NEUTROPHILS % 63.6 % (36.0-66.0); PLATELET COUNT, AUTOMATED 385 10^3/uL (150-450); RED BLOOD COUNT 4.48 10^6/uL (4.30-6.10); WHITE BLOOD COUNT 7.7 10^3/uL (4.0-10.0)
[2019-02-06 16:55] LABS: ALBUMIN 4.3 GM/DL (3.2-5.2); ALT/SGPT 38 U/L (12-78); BILIRUBIN,TOTAL 0.2 MG/DL (0.2-1.0); BLOOD UREA NITROGEN 14 MG/DL (7-18); CALCIUM LEVEL 10.7 MG/DL (8.8-10.2); CARBON DIOXIDE LEVEL 23 MEQ/L (21-32); CHLORIDE LEVEL 109 MEQ/L (98-107); CREATININE FOR GFR 1.17 MG/DL (0.70-1.30); GLOMERULAR FILTRATION RATE > 60.0 (>49); GLUCOSE, FASTING 113 MG/DL (70-100); SODIUM LEVEL 142 MEQ/L (136-145); TOTAL PROTEIN 7.9 GM/DL (6.4-8.2)
[2019-02-06 17:02] LABS: INR 1.03; PROTHROMBIN TIME 13.2 SECONDS (11.8-14.0)
== END ==
LOC: M LABDRAW1 11:14
PROVIDERS: ATTEND Internal Medicine Infectious Disease
DX: C67.9 Malignant neoplasm of bladder, unspecified (principal)
CPT/HCPCS: 36415; 80053; 85025; 85610; G0463

== ENCOUNTER → 2019-02-07 | Outpatient (REF) | payer MEDICARE, MEDICAID ==
[2019-02-07 12:04] LABS: APPEARANCE, URINE CLEAR (CLEAR); BACTERIA, URINE AUTO NEGATIVE (NEGATIVE); BILIRUBIN, URINE AUTO NEGATIVE (NEGATIVE); BLOOD, URINE BLOOD 1+ (NEGATIVE); COLOR, URINE YELLOW (YELLOW); GLUCOSE, URINE (UA) AUTO NEGATIVE (NEGATIVE); KETONE, URINE AUTO TRACE mg/dL (NEGATIVE); LEUKOCYTE ESTERASE, URINE AUTO NEGATIVE (NEGATIVE); NITRITE, URINE AUTO NEGATIVE (NEGATIVE); PROTEIN, URINE AUTO NEGATIVE (NEGATIVE); RBC, URINE AUTO 1 /HPF (0-3); SQUAMOUS EPITHELIAL CELL UR AU 0 /HPF (0-6); UROBILINOGEN, URINE AUTO 0.2 mg/dL (0.0-2.0); WBC, URINE AUTO 0 /HPF (0-3)
== END ==
LOC: M SFHCPLAZ 11:31
PROVIDERS: ATTEND Internal Medicine Infectious Disease
DX: C67.9 Malignant neoplasm of bladder, unspecified (principal); N39.0 Urinary tract infection, site not specified

== ENCOUNTER 2019-02-10 10:47 | Day surgery (SDC) | payer MEDICARE, MEDICAID ==
[~2019-02-10] VITALS: Ht 167.6 cm; Wt 55.5 kg
[~2019-02-10 10:47] MED LIST changes: +LIDOCAINE 1% MDV 20ML VIAL SQ PRN; +LR 1,000 ML IV ONE; +mitoMYcin 40MG VIAL (J9280 PER 5MG) INTRAVESIC ONE
[2019-02-10] MEDS ORDERED: ONDANSETRON 4MG/2ML VIAL (J2405) As Ordered ONE (12:52)
[2019-02-10] MEDS ORDERED: PROPOFOL 200 MG/20 ML VIAL As Ordered ONE (12:52)
[2019-02-10] MEDS ORDERED: dexameTHASONE 4 MG/ML 1ML VIAL (J1100) As Ordered ONE (12:52)
[2019-02-10] MEDS ORDERED: LIDOCAINE 2% INJ 100 MG/5 ML SDV (FOR ANES.) As Ordered ONE (12:53)
[2019-02-10] MEDS ORDERED: ROCURONIUM BROMIDE 50 MG/5 ML VIAL As Ordered ONE (12:55)
[2019-02-10] MEDS ORDERED: fentaNYL 250 MCG/5 ML INJECTION (J3010) As Ordered ONE (12:57)
[2019-02-10] MEDS ORDERED: MIDAZOLAM INJ 2 MG/2 ML VIAL (J2250) As Ordered ONE (12:58)
[2019-02-10] MEDS ORDERED: SUGAMMADEX SODIUM 500 MG/5 ML VIAL (BRIDION) As Ordered ONE (16:17)
[2019-02-10] MEDS ORDERED: LR 1,000 ML IV SCH (17:00)
[2019-02-10] MEDS ORDERED: fentaNYL 100 MCG/2 ML INJECTION (J3010) IV PRN (17:00)
[2019-02-10] MEDS ORDERED: ONDANSETRON 4MG/2ML VIAL (J2405) IV PRN (17:00)
[2019-02-10] MEDS ORDERED: PERCOCET 5MG/325MG TAB PO PRN (17:00)
[2019-02-10] MEDS ORDERED: ACETAMINOPHEN TAB 650MG DOSE (2X325MG) PO PRN (17:00)
[2019-02-10] MEDS ORDERED: HYDROMORPHONE HCL 0.5 MG/ 0.5 ML SYRINGE (J1170 PER 1) IV PRN (17:00)
[2019-02-10 19:30] VITALS: BP 120/72
--- NOTE | 2019-02-13 15:16 | RO ---
DATE OF PROCEDURE: 02/10/2019 PREPROCEDURE DIAGNOSIS: Bladder cancer. POSTPROCEDURE DIAGNOSIS: Bladder cancer. PROCEDURE: Cystoscopy, transurethral resection of bladder tumor (TURBT) (between 2 and 5 cm), intravesical Mitomycin C ablation. SURGEON: Dr. Reid Ramirez PROJECT MANAGER INDUSTRIAL: None. ANESTHESIA: General. OPERATIVE INDICATIONS: This is a 69-year-old male who has a history of high grade bladder cancer, who on recent cystoscopy was found to have recurrent bladder tumor within the posterior and left lateral kelly. He was brought to the operating room today for the above listed procedure. DESCRIPTION OF PROCEDURE: The patient was brought to the operating room where general anesthesia was induced. Prophylactic antibiotics were infused. He was then placed in the dorsal lithotomy position, prepped and draped in the usual standard fashion. A resectoscope was then inserted into the urethral meatus and advanced through the bladder using visual operator automated process. Once inside the bladder, it was thoroughly examined and the only abnormalities seen were a few small papillary tumors on the posterior wall, as well as over the left lateral wall. All these tumors were completely resected using a bipolar loop. The base of the resections were cauterized until there was good hemostasis. All the specimens were then removed from the bladder and sent for pathologic analysis. Once that was done, the resectoscope was removed and an 18 Vietnamese Reed catheter was inserted into the bladder. His catheter was then utilized to drain out the bladder and after the bladder was drained, 40 mg of Mitomycin C was then instilled into the bladder. A catheter plug was then inserted, and this marked conclusion of the procedure. The patient was taken out of dorsal lithotomy position, awakened from anesthesia and transported to the recovery room in stable condition. ESTIMATED BLOOD LOSS: 5 mL. COMPLICATIONS: None. SPECIMENS: Bladder tumors. PLAN: I will have the patient keep the Mitomycin C in his bladder for an hour in the recovery room then it will be drained out. We will follow him in the clinic next week for catheter removal and discuss pathology results.
== END 2019-02-10 19:40 | disposition home or self-care (01) ==
LOC: M SDC 10:47
PROVIDERS: ATTEND Urology
DX: C67.4 Malignant neoplasm of posterior wall of bladder (principal); C67.2 Malignant neoplasm of lateral wall of bladder; F41.9 Anxiety disorder, unspecified; F43.10 Post-traumatic stress disorder, unspecified; B20 Human immunodeficiency virus [HIV] disease; Z79.899 Other long term (current) drug therapy; Z88.8 Allergy status to other drugs, medicaments and biological substances; Z91.040 Latex allergy status; Z91.041 Radiographic dye allergy status; Z86.73 Personal history of transient ischemic attack (TIA), and cerebral infarction without residual deficits
CPT/HCPCS: 51720; 52235; 88307; J0690; J1100; J2250; J2405; J3010; J9280

== ENCOUNTER → 2019-05-11 | Outpatient (REF) | payer MEDICARE, MEDICAID ==
[~2019-05-11] MED LIST changes: -LIDOCAINE 1% MDV 20ML VIAL SQ PRN; -LR 1,000 ML IV ONE; -mitoMYcin 40MG VIAL (J9280 PER 5MG) INTRAVESIC ONE
[2019-05-11 14:25] LABS: ALBUMIN 4.2 GM/DL (3.2-5.2); BILIRUBIN,TOTAL 0.3 MG/DL (0.2-1.0); CALCIUM LEVEL 10.9 MG/DL (8.8-10.2); CREATININE FOR GFR 1.5 MG/DL (0.70-1.30); GLOMERULAR FILTRATION RATE 49.4 (>49); POTASSIUM SERUM 4.2 MEQ/L (3.5-5.1); TOTAL PROTEIN 7.8 GM/DL (6.4-8.2)
[2019-05-11 14:27] LABS: AMORPHOUS SEDIMENT SMALL (NEGATIVE); APPEARANCE, URINE HAZY (CLEAR); BACTERIA, URINE AUTO NEGATIVE (NEGATIVE); BILIRUBIN, URINE AUTO NEGATIVE (NEGATIVE); BLOOD, URINE BLOOD NEGATIVE (NEGATIVE); COLOR, URINE YELLOW (YELLOW); GLUCOSE, URINE (UA) AUTO NEGATIVE (NEGATIVE); KETONE, URINE AUTO NEGATIVE (NEGATIVE); LEUKOCYTE ESTERASE, URINE AUTO NEGATIVE (NEGATIVE); NITRITE, URINE AUTO NEGATIVE (NEGATIVE); PROTEIN, URINE AUTO NEGATIVE (NEGATIVE); RBC, URINE AUTO 1 /HPF (0-3); SPECIFIC GRAVITY URINE AUTO 1.006 (1.002-1.035); SQUAMOUS EPITHELIAL CELL UR AU 0 /HPF (0-6); UROBILINOGEN, URINE AUTO 0.2 mg/dL (0.0-2.0); WBC, URINE AUTO 1 /HPF (0-3)
[2019-05-16 00:10] LABS: % CD8 Pos Lymph 24.1 % (12.0-35.5); %CD4 Pos Lymphs 52.4 % (30.8-58.5); ABS Basophils 0.1 x10E3/uL (0.0-0.2); ABS Eosinophils 0.1 x10E3/uL (0.0-0.4); ABS Lymphs 3.4 x10E3/uL (0.7-3.1); ABS Monocytes 0.8 x10E3/uL (0.1-0.9); ABS Neutophils 5.4 x10E3/uL (1.4-7.0); Abs CD4 Helper 1782 /uL (359-1519); Abs CD8 Suppres 819 /uL (109-897); CD4/CD8 Ratio 2.17 (0.92-3.72); Eosinophils 1 % (Not Estab.); HCT 42.2 % (37.5-51.0); HGB 14.1 g/dL (13.0-17.7); HIV-1 RNA PCR QUANT 2 LC550285 <20 copies/mL (.); Immature Grans 0 % (Not Estab.); Lymphocytes 35 % (Not Estab.); MCH 31.6 pg (26.6-33.0); MCHC 33.4 g/dL (31.5-35.7); MCV 95 fL (79-97); Monocytes 8 % (Not Estab.); Neutrophils 55 % (Not Estab.); Platelets 374 x10E3/uL (150-450); RBC 4.46 x10E6/uL (4.14-5.80); RDW 14.2 % (12.3-15.4); WBC 9.8 x10E3/uL (3.4-10.8)
== END ==
LOC: M SFHCPLAZ 09:46
PROVIDERS: ATTEND Internal Medicine Infectious Disease
DX: B20 Human immunodeficiency virus [HIV] disease (principal); Z23 Encounter for immunization
CPT/HCPCS: 36415; 80053; 81001; 86360; 87536; 90682; G0008; G0463

== ENCOUNTER → 2019-05-22 | Outpatient (REF) | payer MEDICARE, MEDICAID | LOC: M SMT 12:49 | PROVIDERS: ATTEND Urology | DX: C67.9 Malignant neoplasm of bladder, unspecified (principal) ==

== ENCOUNTER → 2019-09-05 | Outpatient (REF) | payer MEDICARE, MEDICAID ==
[2019-09-05 11:19] LABS: APPEARANCE, URINE CLEAR (CLEAR); BACTERIA, URINE AUTO NEGATIVE (NEGATIVE); BILIRUBIN, URINE AUTO NEGATIVE (NEGATIVE); BLOOD, URINE BLOOD NEGATIVE (NEGATIVE); COLOR, URINE STRAW (YELLOW); GLUCOSE, URINE (UA) AUTO NEGATIVE (NEGATIVE); KETONE, URINE AUTO NEGATIVE (NEGATIVE); LEUKOCYTE ESTERASE, URINE AUTO NEGATIVE (NEGATIVE); NITRITE, URINE AUTO NEGATIVE (NEGATIVE); PROTEIN, URINE AUTO NEGATIVE (NEGATIVE); RBC, URINE AUTO 0 /HPF (0-3); SPECIFIC GRAVITY URINE AUTO 1.008 (1.002-1.035); SQUAMOUS EPITHELIAL CELL UR AU 0 /HPF (0-6); UROBILINOGEN, URINE AUTO 0.2 mg/dL (0.0-2.0); WBC, URINE AUTO 1 /HPF (0-3)
[2019-09-05 12:04] LABS: ALBUMIN 4.1 GM/DL (3.2-5.2); ALT/SGPT 29 U/L (12-78); BILIRUBIN,TOTAL 0.2 MG/DL (0.2-1.0); BLOOD UREA NITROGEN 17 MG/DL (7-18); CALCIUM LEVEL 10.6 MG/DL (8.8-10.2); CARBON DIOXIDE LEVEL 28 MEQ/L (21-32); CHLORIDE LEVEL 108 MEQ/L (98-107); CREATININE FOR GFR 1.22 MG/DL (0.70-1.30); GLOMERULAR FILTRATION RATE > 60.0 (>49); GLUCOSE, FASTING 95 MG/DL (70-100); POTASSIUM SERUM 4.5 MEQ/L (3.5-5.1); SODIUM LEVEL 142 MEQ/L (136-145); TOTAL PROTEIN 7.6 GM/DL (6.4-8.2)
[2019-09-05 12:34] LABS: VITAMIN B12 LEVEL 629 PG/ML
[2019-09-09 08:14] LABS: % CD8 Pos Lymph 23.2 % (12.0-35.5); %CD4 Pos Lymphs 54.7 % (30.8-58.5); ABS Eosinophils 0.1 x10E3/uL (0.0-0.4); ABS Monocytes 0.6 x10E3/uL (0.1-0.9); ABS Neutophils 5.3 x10E3/uL (1.4-7.0); Abs CD4 Helper 1094 /uL (359-1519); Abs CD8 Suppres 464 /uL (109-897); CD4/CD8 Ratio 2.36 (0.92-3.72); Eosinophils 1 % (Not Estab.); HCT 40.6 % (37.5-51.0); HGB 13.8 g/dL (13.0-17.7); HIV-1 RNA PCR QUANT 2 LC550285 <20 copies/mL (.); Immature Grans 0 % (Not Estab.); Lymphocytes 25 % (Not Estab.); MCH 31.6 pg (26.6-33.0); MCV 93 fL (79-97); Monocytes 8 % (Not Estab.); Neutrophils 66 % (Not Estab.); Platelets 451 x10E3/uL (150-450); RBC 4.37 x10E6/uL (4.14-5.80); VITAMIN B1 LEVEL WHOLE BLOOD 170.6 nmol/L (66.5-200.0)
== END ==
LOC: M SFHCPLAZ 09:53
PROVIDERS: ATTEND Internal Medicine Infectious Disease
DX: B20 Human immunodeficiency virus [HIV] disease (principal)
CPT/HCPCS: 36415; 80053; 81001; 82607; 82746; 84425; 86360; 87536; G0463

== ENCOUNTER → 2020-12-03 | Outpatient (REF) | payer MEDICARE, MEDICAID ==
[~2020-12-03] MED LIST changes: -CLOT1CRE2 TOP; +CLOT1CRE56 TOP
[2020-12-03 13:38] LABS: APPEARANCE, URINE CLEAR (CLEAR); BACTERIA, URINE AUTO NEGATIVE (NEGATIVE); BILIRUBIN, URINE AUTO NEGATIVE (NEGATIVE); BLOOD, URINE BLOOD NEGATIVE (NEGATIVE); COLOR, URINE YELLOW (YELLOW); GLUCOSE, URINE (UA) AUTO NEGATIVE (NEGATIVE); KETONE, URINE AUTO NEGATIVE (NEGATIVE); LEUKOCYTE ESTERASE, URINE AUTO NEGATIVE (NEGATIVE); NITRITE, URINE AUTO NEGATIVE (NEGATIVE); PROTEIN, URINE AUTO NEGATIVE (NEGATIVE); RBC, URINE AUTO 0 /HPF (0-3); SPECIFIC GRAVITY URINE AUTO 1.009 (1.002-1.035); SQUAMOUS EPITHELIAL CELL UR AU 0 /HPF (0-6); UROBILINOGEN, URINE AUTO 0.2 mg/dL (0.0-2.0); WBC, URINE AUTO 0 /HPF (0-3)
[2020-12-03 14:17] LABS: ALBUMIN 3.8 GM/DL (3.2-5.2); ALT/SGPT 53 U/L (12-78); BILIRUBIN,TOTAL 0.2 MG/DL (0.2-1.0); BLOOD UREA NITROGEN 18 MG/DL (7-18); CALCIUM LEVEL 10.1 MG/DL (8.8-10.2); CARBON DIOXIDE LEVEL 29 MEQ/L (21-32); CHLORIDE LEVEL 108 MEQ/L (98-107); CREATININE FOR GFR 1.09 MG/DL (0.70-1.30); GLOMERULAR FILTRATION RATE > 60.0 (>42); GLUCOSE, FASTING 96 MG/DL (70-100); POTASSIUM SERUM 4.2 MEQ/L (3.5-5.1); SODIUM LEVEL 140 MEQ/L (136-145); TOTAL PROTEIN 7.1 GM/DL (6.4-8.2)
[2020-12-05 02:07] LABS: % CD8 Pos Lymph 26.7 % (12.0-35.5); %CD4 Pos Lymphs 54.2 % (30.8-58.5); ABS Basophils 0.1 x10E3/uL (0.0-0.2); ABS Eosinophils 0.1 x10E3/uL (0.0-0.4); ABS Lymphs 2.5 x10E3/uL (0.7-3.1); ABS Monocytes 0.7 x10E3/uL (0.1-0.9); ABS Neutophils 3.9 x10E3/uL (1.4-7.0); Abs CD4 Helper 1355 /uL (359-1519); Abs CD8 Suppres 668 /uL (109-897); CD4/CD8 Ratio 2.03 (0.92-3.72); Eosinophils 2 % (Not Estab.); HCT 37.8 % (37.5-51.0); HIV-1 RNA PCR QUANT 2 LC550285 <20 copies/mL (.); Immature Grans 0 % (Not Estab.); Lymphocytes 34 % (Not Estab.); MCH 31.3 pg (26.6-33.0); MCHC 34.4 g/dL (31.5-35.7); MCV 91 fL (79-97); Monocytes 9 % (Not Estab.); Neutrophils 54 % (Not Estab.); Platelets 339 x10E3/uL (150-450); RBC 4.16 x10E6/uL (4.14-5.80); WBC 7.4 x10E3/uL (3.4-10.8)
== END ==
LOC: M SFHCPLAZ 10:13
PROVIDERS: ATTEND Internal Medicine Infectious Disease
DX: B20 Human immunodeficiency virus [HIV] disease (principal)
CPT/HCPCS: 36415; 80053; 81001; 86360; 87536; G0463

== ENCOUNTER → 2021-06-05 | Outpatient (CLI) | payer MEDICARE, MEDICAID ==
[2021-06-05 11:11] LABS: CREATININE FOR GFR 1.41 MG/DL (0.70-1.30); GLOMERULAR FILTRATION RATE 52.7 (>42); POTASSIUM SERUM 4.2 MEQ/L (3.5-5.1)
[2021-06-05 11:12] LABS: BILIRUBIN,TOTAL 0.2 MG/DL (0.2-1.0); CALCIUM LEVEL 10.9 MG/DL (8.8-10.2); TOTAL PROTEIN 7.9 GM/DL (6.4-8.2)
[2021-06-07 01:07] LABS: % CD8 Pos Lymph 26.8 % (12.0-35.5); %CD4 Pos Lymphs 53.1 % (30.8-58.5); ABS Basophils 0.1 x10E3/uL (0.0-0.2); ABS Eosinophils 0.2 x10E3/uL (0.0-0.4); ABS Monocytes 0.8 x10E3/uL (0.1-0.9); Abs CD4 Helper 1593 /uL (359-1519); Abs CD8 Suppres 804 /uL (109-897); CD4/CD8 Ratio 1.98 (0.92-3.72); Eosinophils 2 % (Not Estab.); HCT 41.4 % (37.5-51.0); HGB 13.8 g/dL (13.0-17.7); HIV-1 RNA PCR QUANT 2 LC550285 <20 copies/mL (.); Immature Grans 0 % (Not Estab.); Lymphocytes 30 % (Not Estab.); MCH 30.7 pg (26.6-33.0); MCHC 33.3 g/dL (31.5-35.7); MCV 92 fL (79-97); Monocytes 8 % (Not Estab.); Neutrophils 59 % (Not Estab.); Platelets 395 x10E3/uL (150-450); RBC 4.49 x10E6/uL (4.14-5.80); RDW 12.3 % (11.6-15.4); WBC 10.1 x10E3/uL (3.4-10.8)
== END ==
LOC: M PLALAB 09:15
PROVIDERS: ATTEND Internal Medicine Infectious Disease
DX: B20 Human immunodeficiency virus [HIV] disease (principal)
CPT/HCPCS: 36415; 80053; 86360; 87536; G0463

== ENCOUNTER → 2022-05-11 | Outpatient (CLI) | payer MEDICARE, MEDICAID ==
[~2022-05-11] MED LIST changes: +L-LY500T23 PO; -L-LY500T9 PO; +RA S160C PO; -SM S160C PO
[2022-05-11 17:52] LABS: ALBUMIN 4.1 GM/DL (3.2-5.2); BILIRUBIN,TOTAL 0.2 MG/DL (0.2-1.0); CALCIUM LEVEL 10.5 MG/DL (8.8-10.2); CREATININE FOR GFR 1.42 MG/DL (0.70-1.30); GLOMERULAR FILTRATION RATE 52.2 (>42); TOTAL PROTEIN 7.7 GM/DL (6.4-8.2)
[2022-05-11 18:25] LABS: TOTAL 25(OH) VITAMIN D 35.9 NG/ML (30.0-100.0)
== END ==
LOC: M WUC 10:39
PROVIDERS: ATTEND Internal Medicine Infectious Disease
DX: E55.9 Vitamin D deficiency, unspecified (principal); B20 Human immunodeficiency virus [HIV] disease

== ENCOUNTER → 2022-06-08 | Outpatient (REF) | payer MEDICARE, MEDICAID ==
[~2022-06-08] MED LIST changes: +BIKT1TAB PO; +HYDR-4571 PO
== END ==
LOC: M SMT 13:01
PROVIDERS: ATTEND Urology
DX: C67.9 Malignant neoplasm of bladder, unspecified (principal); R82.998 Other abnormal findings in urine

== ENCOUNTER → 2022-06-24 | Outpatient (CLI) | payer MEDICARE, MEDICAID | LOC: M LABSMTC 09:12 | PROVIDERS: ATTEND Anesthesiology | DX: Z01.812 Encounter for preprocedural laboratory examination (principal); Z11.52 Encounter for screening for COVID-19 ==

== ENCOUNTER 2022-06-29 06:32 | Day surgery (SDC) | payer MEDICARE, MEDICAID ==
[~2022-06-29] VITALS: Ht 167.6 cm; Wt 54.4 kg
[~2022-06-29 06:32] MED LIST changes: +NS 1,000 ML IV ONE
[2022-06-29] MEDS ORDERED: propofoL 200 MG/20 ML VIAL As Ordered ONE (07:26)
[2022-06-29 08:31] VITALS: BP 101/63
== END 2022-06-29 08:34 | disposition home or self-care (01) ==
LOC: M OPP 06:32
PROVIDERS: ATTEND Internal Medicine Gastroenterology
DX: K64.8 Other hemorrhoids (principal); K50.10 Crohn's disease of large intestine without complications; K52.3 Indeterminate colitis; B20 Human immunodeficiency virus [HIV] disease; E78.00 Pure hypercholesterolemia, unspecified; E55.9 Vitamin D deficiency, unspecified; M19.90 Unspecified osteoarthritis, unspecified site; F32.9 Major depressive disorder, single episode, unspecified; F41.9 Anxiety disorder, unspecified; M81.0 Age-related osteoporosis without current pathological fracture; Z79.2 Long term (current) use of antibiotics; Z79.891 Long term (current) use of opiate analgesic; Z79.899 Other long term (current) drug therapy; Z88.6 Allergy status to analgesic agent; Z88.8 Allergy status to other drugs, medicaments and biological substances; Z91.040 Latex allergy status; Z91.041 Radiographic dye allergy status; Z87.891 Personal history of nicotine dependence; Z80.0 Family history of malignant neoplasm of digestive organs; Z86.73 Personal history of transient ischemic attack (TIA), and cerebral infarction without residual deficits; Z85.51 Personal history of malignant neoplasm of bladder

== ENCOUNTER → 2022-09-28 | Outpatient (CLI) | payer MEDICARE, MEDICAID ==
[~2022-09-28] MED LIST changes: -NS 1,000 ML IV ONE
[2022-09-28 16:23] LABS: ALBUMIN 4.2 G/DL (3.2-5.2); ALKALINE PHOSPHATASE 86 U/L (46-116); ALT/SGPT 33 U/L (7.0-40); AST/SGOT 29 U/L (<34); BILIRUBIN,TOTAL 0.4 MG/DL (0.3-1.2); BLOOD UREA NITROGEN 15 MG/DL (9-23); CALCIUM LEVEL 10.8 MG/DL (8.3-10.6); CARBON DIOXIDE LEVEL 28 MMOL/L (20-31); CHLORIDE LEVEL 102 MMOL/L (98-107); GLOMERULAR FILTRATION RATE > 60.0 (>42); GLUCOSE, FASTING 119 MG/DL (74-106); POTASSIUM SERUM 3.9 MMOL/L (3.5-5.1); SODIUM LEVEL 139 MMOL/L (136-145); TOTAL PROTEIN 7.7 G/DL (5.7-8.2)
[2022-09-29 23:07] LABS: %CD4 Pos Lymphs 55.2 % (30.8-58.5); ABS Basophils 0.1 x10E3/uL (0.0-0.2); ABS Eosinophils 0.1 x10E3/uL (0.0-0.4); ABS Lymphs 2.2 x10E3/uL (0.7-3.1); ABS Monocytes 0.7 x10E3/uL (0.1-0.9); ABS Neutophils 6.4 x10E3/uL (1.4-7.0); Abs CD4 Helper 1214 /uL (359-1519); Abs CD8 Suppres 462 /uL (109-897); CD4/CD8 Ratio 2.63 (0.92-3.72); Eosinophils 1 % (Not Estab.); HCT 43.4 % (37.5-51.0); HGB 14.7 g/dL (13.0-17.7); HIV-1 RNA PCR QUANT 2 LC550285 <20 copies/mL (.); Immature Grans 0 % (Not Estab.); Lymphocytes 24 % (Not Estab.); MCHC 33.9 g/dL (31.5-35.7); MCV 92 fL (79-97); Monocytes 7 % (Not Estab.); Neutrophils 67 % (Not Estab.); Platelets 431 x10E3/uL (150-450); RBC 4.74 x10E6/uL (4.14-5.80); WBC 9.4 x10E3/uL (3.4-10.8)
== END ==
LOC: M PLALAB 09:45
PROVIDERS: ATTEND Internal Medicine Infectious Disease
DX: B20 Human immunodeficiency virus [HIV] disease (principal); C67.9 Malignant neoplasm of bladder, unspecified; E55.9 Vitamin D deficiency, unspecified; F41.1 Generalized anxiety disorder; K51.90 Ulcerative colitis, unspecified, without complications; M19.011 Primary osteoarthritis, right shoulder; L21.9 Seborrheic dermatitis, unspecified
CPT/HCPCS: 36415; 80053; 86360; 87536; G0463

== ENCOUNTER → 2024-04-27 | Outpatient (CLI) | payer MEDICARE, MEDICAID ==
[2024-04-27 13:24] LABS: ALKALINE PHOSPHATASE 85 U/L (46-116); ALT/SGPT 36 U/L (7.0-40); AST/SGOT 24 U/L (<34); BILIRUBIN,TOTAL 0.2 MG/DL (0.3-1.2); BLOOD UREA NITROGEN 20 MG/DL (9-23); CALCIUM LEVEL 11.2 MG/DL (8.3-10.6); CARBON DIOXIDE LEVEL 28 MMOL/L (20-31); CHLORIDE LEVEL 106 MMOL/L (98-107); CHOLESTEROL LEVEL 198 MG/DL (<200); CHOLESTEROL RISK RATIO 4.21 (<5); CREATININE FOR GFR 1.19 MG/DL (0.70-1.30); GLOMERULAR FILTRATION RATE > 60.0 (>42); GLUCOSE, FASTING 93 MG/DL (74-106); LDL CHOLESTEROL 127.2 MG/DL (<100); POTASSIUM SERUM 4.2 MMOL/L (3.5-5.1); SODIUM LEVEL 139 MMOL/L (136-145); TOTAL PROTEIN 7.8 G/DL (5.7-8.2); TRIGLYCERIDES LEVEL 119 MG/DL (<150)
[2024-04-27 13:26] LABS: TOTAL 25(OH) VITAMIN D 32.8 NG/ML (20.0-100.0)
[2024-04-27 14:11] LABS: APPEARANCE, URINE CLEAR (CLEAR); BACTERIA, URINE AUTO NEGATIVE (NEGATIVE); BILIRUBIN, URINE AUTO NEGATIVE (NEGATIVE); BLOOD, URINE BLOOD 1+ (NEGATIVE); COLOR, URINE YELLOW (YELLOW); GLUCOSE, URINE (UA) AUTO NEGATIVE (NEGATIVE); KETONE, URINE AUTO NEGATIVE (NEGATIVE); LEUKOCYTE ESTERASE, URINE AUTO NEGATIVE (NEGATIVE); NITRITE, URINE AUTO NEGATIVE (NEGATIVE); PROTEIN, URINE AUTO NEGATIVE (NEGATIVE); RBC, URINE AUTO 3 /HPF (0-3); SPECIFIC GRAVITY URINE AUTO 1.011 (1.002-1.035); SQUAMOUS EPITHELIAL CELL UR AU 0 /HPF (0-6); UROBILINOGEN, URINE AUTO 0.2 mg/dL (0.0-2.0); WBC, URINE AUTO 2 /HPF (0-3)
[2024-04-28 10:32] LABS: HIV-1 RNA PCR QUANT 2 NOT DETECTED copies/mL (NOT DETECTED); HIV-1 RNA PCR QUANT 3 NOT DETECTED (NOT DETECTED)
[2024-04-28 13:07] LABS: % CD4+ LYMPHS 52.5 % (30.8-58.5); ABSOLUTE CD4 HELPER 1365 /uL (359-1519); BASOPHILS 1 % (Not Estab.); BASOPHILS ABSOLUTE 0.1 x10E3/uL (0.0-0.2); EOSINOPHILS 1 % (Not Estab.); EOSINOPHILS ABSOLUTE 0.1 x10E3/uL (0.0-0.4); HCT 42.5 % (37.5-51.0); HGB 14.5 g/dL (13.0-17.7); LYMPHOCYTES 29 % (Not Estab.); LYMPHOCYTES ABSOLUTE 2.6 x10E3/uL (0.7-3.1); MCH 32.5 pg (26.6-33.0); MCHC 34.1 g/dL (31.5-35.7); MCV 95 fL (79-97); MONOCYTES 8 % (Not Estab.); MONOCYTES ABSOLUTE 0.8 x10E3/uL (0.1-0.9); NEUTROPHILS 61 % (Not Estab.); NEUTROPHILS ABSOLUTE 5.7 x10E3/uL (1.4-7.0); PLT 425 x10E3/uL (150-450); RBC 4.46 x10E6/uL (4.14-5.80); RDW 12.1 % (11.6-15.4); WBC 9.3 x10E3/uL (3.4-10.8)
[2024-05-03 12:13] LABS: FREE T4 1.07 NG/DL (0.89-1.76); THYROID STIMULATING HORMONE 3.573 uIU/ML (0.55-4.78)
[2024-05-03 12:14] LABS: PHOSPHORUS LEVEL 3.5 MG/DL (2.4-5.1); PTH INTACT 33.9 PG/ML (18.5-88.0)
== END ==
LOC: M PLALAB 09:02
PROVIDERS: ATTEND Internal Medicine Infectious Disease
DX: B20 Human immunodeficiency virus [HIV] disease (principal); E78.2 Mixed hyperlipidemia; E55.9 Vitamin D deficiency, unspecified

== ENCOUNTER → 2024-06-07 | Outpatient (CLI) | payer MEDICARE, MEDICAID ==
[2024-06-07 17:27] LABS: PHOSPHORUS LEVEL 3.7 MG/DL (2.4-5.1)
[2024-06-07 17:28] LABS: PTH INTACT 79.2 PG/ML (18.5-88.0)
[2024-06-07 17:29] LABS: FREE T4 1.05 NG/DL (0.89-1.76); THYROID STIMULATING HORMONE 2.564 uIU/ML (0.55-4.78)
== END ==
LOC: M WUC 14:22
PROVIDERS: ATTEND Internal Medicine Infectious Disease
DX: E83.52 Hypercalcemia (principal)

== ENCOUNTER → 2025-06-18 | Outpatient (CLI) | payer MEDICARE, MEDICAID ==
[~2025-06-18] MED LIST changes: -RA S160C PO; +SAW160CA23 PO
[2025-06-18 14:39] LABS: ALT/SGPT 26.0 U/L (7.0-40); AST/SGOT 25.0 U/L (<34); CALCIUM LEVEL 10.3 MG/DL (8.3-10.6); CARBON DIOXIDE LEVEL 27.0 MMOL/L (20-31); CHLORIDE LEVEL 105.0 MMOL/L (98-107); CREATININE FOR GFR 1.1 MG/DL (0.70-1.30); GLOMERULAR FILTRATION RATE 70.0 (>42); POTASSIUM SERUM 4.0 MMOL/L (3.5-5.1); SODIUM LEVEL 141.0 MMOL/L (136-145)
[2025-06-18 14:41] LABS: TOTAL 25(OH) VITAMIN D 34.2 NG/ML (20.0-100.0)
[2025-06-19 14:27] LABS: HIV-1 RNA PCR QUANT 2 <20 DETECTED copies/mL (NOT DETECTED); HIV-1 RNA PCR QUANT 3 <1.30 DETECTED (NOT DETECTED)
[2025-06-21 00:36] LABS: % CD4 60 % (30-61); %CD8 24 % (12-42); ABSOLUTE CD4 CELLS 1458 cells/uL (490-1740); ABSOLUTE CD8 CELLS 583 cells/uL (180-1170); ABSOLUTE LYMPHOCYTES 2436 cells/uL (850-3900); CD4 CD8 RATIO 2.50 (0.86-5.00)
== END ==
LOC: M PLALAB 08:33
PROVIDERS: ATTEND Internal Medicine Infectious Disease
DX: B20 Human immunodeficiency virus [HIV] disease (principal); E55.9 Vitamin D deficiency, unspecified